=== PATIENT | male | born 1950 | race Caucasian/White ===

== ENCOUNTER 2016-10-10 09:13 | Emergency (ER) | payer MEDICARE ==
[2016-10-10 09:47] VITALS: TEMP 98.7; BMI 24.0
--- NOTE | 2016-10-10 10:44 | EDPRACDOC ---
- General Information Chief Complaint: Abdominal Pain Stated Complaint: RT FLANK PAIN Time Seen by Provider: 10/10/16 10:31 Mode Of Arrival: Car Home Medications: Home Medications Bicalutamide [Casodex] 50 mg PO QAM 10/10/16 Oxycodone HCl [Roxicodone] 5 mg PO Q4-6H PRN #30 tablet 10/10/16 Saw Marcellus Xtr/Zinc Picolin [Saw Marcellus Capsule] 1 each PO BID 10/10/16 Allergies/Adverse Reactions: Allergies Allergy/AdvReac Type Severity Reaction Status Date / Time No Known Allergies Allergy Verified 10/10/16 09:47 - History of Present Illness Onset: 1 month HPI: PT PRESENTS WITH A MONTH OF RIGHT LOWER CHEST WALL PAIN. BEGAN WHEN HE WAS LIFTING HIS MOTHER AND HAD SUDDEN ONSET OF PAIN. WORSE WITH DEEP INSPIRATION. PAIN IS LOCALIZED TO THE POSTERIOR ASPECT. NO ABDOMINAL PAIN. Pain Location: Reports: Flank (RIGHT) Pain Context: Reports: With Exertion (AFTER LIFTING HIS MOTHER A MONTH AGO.) Pain Severity: Moderate Pain Quality: Reports: Aching, Sharp Adult Abdominal History: Denies: Urolithiasis Associated Signs & Symptoms: Denies: Nausea, Vomiting, Diarrhea, Fever Oral Intake: Normal Urinary Output: Normal ED Past Medical History - History Reviewed Yes Nurses notes reviewed and agree except as marked - Patient Medical History Systemic History: Reports: Cancer (Prostate) - Social Medical History Lives In: Assisted Living EDM Review of Systems - Review of Systems ROS Negative Except as Marked: Yes All systems reviewed and were negative except as marked Constitutional: negative: Fever Respiratory: Shortness of Breath (DUE TO PAIN.) Cardiovascular: Chest Pain (RIGHT LOWER POSTERIOR CHEST WALL) Gastrointestinal: Pain (RUQ RADIATING FROM RIGHT FLANK. WORSE WITH DEEP INSPIRATION.). negative: Nausea, Vomiting - Physical Exam Constitutional: Alert Oriented to: Time, Person, Place Last recorded Vital Signs: Last Vital Signs Temp 98.7 F 10/10/16 09:42 Pulse 73 10/10/16 11:41 Resp 18 10/10/16 11:41 BP 162/92 10/10/16 11:41 Pulse Ox 97 10/10/16 11:41 Oxygen Pulse Oxygen Saturation 97 O2 Device Oxygen Flow Rate Fraction of Inspired Oxygen ( FIO2) - HEENT Head: negative: Deformity, Laceration Eye Exam: negative: Conjunctival Injection, Pale Conjunctiva Oropharynx: negative: Membranes Dry Nose: negative: Congestion, Discharge Neck: negative: Limited ROM - Respiratory/Cardiovascular Respiratory: Normal - CTA. negative: Tachypnea Cardiovascular: negative: Bradycardia, Tachycardia, Irregular - GI Auscultation: Normal Palpation: Normal Tenderness: RUQ (ONLY WITH DEEP BREATH) - Integumentary Skin: Warm, Dry. negative: Rash - Neurologic Memory Impaired: Normal Motor Function: Normal Mood Description: Anxious, Appropriate Thought: Coherent Perception: Normal - Re-evaluation Re-evaluation 1 Re-evaluation Time: 13:29 PT STATES HE HAS KNOWN METASTATIC DISEASE AND HAS A SPOT ON HIS 12TH RIB. LIKELY HIS PAIN IS FROM THIS. WILL PRESCRIBE PAIN MEDICATION FOR HOME. - Results 10/10/16 10:40 10/10/16 10:40 WBC 5.3 xk/uL (3.8-10.8) 10/10/16 10:40 RBC 4.24 xM/uL (4.70-6.10) L 10/10/16 10:40 Hgb 13.3 g/dL (14.0-18.0) L 10/10/16 10:40 Hct 38.7 % (42-52) L 10/10/16 10:40 MCV 91 fL (80-94) 10/10/16 10:40 MCH 31.3 pg (27-32) 10/10/16 10:40 MCHC 34.3 g/dl (33-36) 10/10/16 10:40 RDW 13.3 % (11.5-14.5) 10/10/16 10:40 Plt Count 165 xk/uL (130-400) 10/10/16 10:40 MPV 9.1 fL (7.4-10.4) 10/10/16 10:40 Neut % (Auto) Cancelled 10/10/16 10:40 Lymph % (Auto) Cancelled 10/10/16 10:40 [place] % (Auto) Cancelled 10/10/16 10:40 Eos % (Auto) Cancelled 10/10/16 10:40 Baso % (Auto) Cancelled 10/10/16 10:40 Absolute Neuts (auto) Cancelled 10/10/16 10:40 Absolute Lymphs (auto) Cancelled 10/10/16 10:40 Seg Neuts % (Manual) 64 % (45-76) 10/10/16 10:40 Band Neutrophils % 1 % (0-5) 10/10/16 10:40 Lymphocytes % (Manual) 22 % (17-44) 10/10/16 10:40 Monocytes % (Manual) 11 % (0-10) H 10/10/16 10:40 Eosinophils % (Manual) 2 % (0-5) 10/10/16 10:40 Absolute Neutrophils 3.45 xk/uL (1.7-8.2) 10/10/16 10:40 Absolute Lymphocytes 1.17 xk/uL (0.65-4.75) 10/10/16 10:40 Platelet Estimate Norm (NORMAL) 10/10/16 10:40 RBC Morphology Norm 10/10/16 10:40 PT 11.0 SEC (9.2-11.2) 10/10/16 10:40 INR 1.1 10/10/16 10:40 APTT 27.7 SEC (22-35) 10/10/16 10:40 Sodium 138 mEq/L (137-146) 10/10/16 10:40 Potassium 4.2 mEq/L (3.5-5.1) 10/10/16 10:40 Chloride 100 mEq/L (98-107) 10/10/16 10:40 Carbon Dioxide 28 mMOL/L (22-33) 10/10/16 10:40 Anion Gap 14 mEq/L (8-16) 10/10/16 10:40 BUN 10 MG/DL (9-20) 10/10/16 10:40 Creatinine 0.80 MG/DL (0.66-1.25) 10/10/16 10:40 Estimated GFR (MDRD) > 60 mL/min (>=60) 10/10/16 10:40 Glucose 92 mg/dL (70-99) 10/10/16 10:40 Calculated Osmolality 265 MOs/Kg (270-290) L 10/10/16 10:40 Calcium 9.2 MG/DL (8.4-10.2) 10/10/16 10:40 Total Bilirubin 0.8 MG/DL (0.2-1.3) 10/10/16 10:40 AST 64 IU/L (17-59) H 10/10/16 10:40 ALT 74 IU/L (21-72) H 10/10/16 10:40 Alkaline Phosphatase 99 IU/L (50-160) 10/10/16 10:40 Troponin I < 0.01 ng/mL (<.04) 10/10/16 10:40 Total Protein 7.5 G/DL (6.3-8.2) 10/10/16 10:40 Albumin 4.1 G/DL (3.5-5.0) 10/10/16 10:40 Lipase 40 U/L (23-300) 10/10/16 10:40 Lab Results 10/10/16 10/10/16 10/10/16 10:40 10:40 10:40 WBC 5.3 RBC 4.24 L Hgb 13.3 L Hct 38.7 L MCV 91 MCH 31.3 MCHC 34.3 RDW 13.3 Plt Count 165 MPV 9.1 Neut % (Auto) Cancelled Lymph % (Auto) Cancelled [place] % (Auto) Cancelled Eos % (Auto) Cancelled Baso % (Auto) Cancelled Absolute Neuts (auto) Cancelled Absolute Lymphs (auto) Cancelled Seg Neuts % (Manual) 64 Band Neutrophils % 1 Lymphocytes % (Manual) 22 Monocytes % (Manual) 11 H Eosinophils % (Manual) 2 Absolute Neutrophils 3.45 Absolute Lymphocytes 1.17 Platelet Estimate Norm RBC Morphology Norm PT 11.0 INR 1.1 APTT 27.7 Sodium 138 Potassium 4.2 Chloride 100 Carbon Dioxide 28 Anion Gap 14 BUN 10 Creatinine 0.80 Estimated GFR (MDRD) > 60 Glucose 92 Calculated Osmolality 265 L Calcium 9.2 Total Bilirubin 0.8 AST 64 H ALT 74 H Alkaline Phosphatase 99 Troponin I < 0.01 Total Protein 7.5 Albumin 4.1 Lipase 40 - EKG EKG #1 EKG Time: 10:43 -: Yes EKG interpreted by me Rate: bpm: 73 [place]: LAD Rhythm: NSR ST: Nonsp Decision Time to Discharge: 13:30 - Departure Yes I personally saw and evaluated the patient. 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 Back pain Qualifiers: Back pain location: thoracic back pain Chronicity: chronic Back pain laterality : right Qualified Code(s): M54.6 - Pain in thoracic spine; G89.29 - Other chronic pain Instructions: Back Pain (ED), Core Strengthening Exercises (GEN) Education/Counseling Given To: Patient Education/Counseling Given Regarding: Diagnosis, Treatment, Prognosis, Follow Up Referrals: None,No Provider [Primary Care Provider] - As Needed Prescriptions: New Oxycodone HCl [Roxicodone] 5 mg PO Q4-6H PRN #30 tablet PRN Reason: Breakthrough Pain Continue Bicalutamide [Casodex] 50 mg PO QAM Saw Marcellus Xtr/Zinc Picolin [Saw Marcellus Capsule] 1 each PO BID
[2016-10-10 10:48] LABS: MPV 9.1 fL (7.4-10.4)
[2016-10-10 10:59] LABS: BLOOD UREA NITROGEN 10 MG/DL (9-20); CALCIUM 9.2 MG/DL (8.4-10.2); CALCULATED OSMOLALITY 265 MOs/Kg (270-290); CHLORIDE 100 mEq/L (98-107); GLUCOSE 92 mg/dL (70-99); SODIUM LEVEL 138 mEq/L (137-146); TOTAL PROTEIN 7.5 G/DL (6.3-8.2)
[2016-10-10 11:03] LABS: PARTIAL THROMB. TIME 27.7 SEC (22-35); PT-INR 1.1
[2016-10-10 11:36] LABS: SEG NEUTROPHIL 64 % (45-76)
--- NOTE | 2016-10-10 11:43 | DIRPT ---
CLINICAL DATA: Right lower chest pain. Initial encounter. EXAM: CHEST 2 VIEW COMPARISON: None. FINDINGS: Hazy opacity is present in the right lung base. The left lung is clear. Heart size is normal. No pneumothorax or pleural effusion. IMPRESSION: Hazy right basilar airspace opacity could be due to atelectasis or infection. Electronically Signed By: Cezar Ortega M.D. On: 10/10/2016 11:40
--- NOTE | 2016-10-10 12:49 | DIRPT ---
CLINICAL DATA: Right flank pain. History of prostate carcinoma EXAM: CT ABDOMEN AND PELVIS WITHOUT CONTRAST TECHNIQUE: Multidetector CT imaging of the abdomen and pelvis was performed following the standard protocol without oral or intravenous contrast material administration. COMPARISON: July 17, 2016 FINDINGS: Lower chest: There is bibasilar lung scarring. There is mild posterior pleural thickening bilaterally. There is evidence of a degree of pectus excavatum. Hepatobiliary: No focal liver lesions are identified on this noncontrast enhanced study. Gallbladder wall does not appear appreciably thickened. There is no appreciable biliary duct dilatation. Pancreas: No pancreatic mass or inflammatory focus. Spleen: No splenic lesions are identified. Adrenals/Urinary Tract: Adrenals appear normal bilaterally. There is a 1 mm calculus in the mid right kidney. There is no mass or hydronephrosis on either side. There are no intrarenal calculi on the left. There is no ureteral calculus on either side. Urinary bladder is midline with wall thickness within normal limits. Stomach/Bowel: There is no appreciable bowel wall or mesenteric thickening. There is no apparent bowel obstruction. No free air or portal venous air. Vascular/Lymphatic: There is no demonstrable abdominal aortic aneurysm. There are scattered foci of calcification in the aorta. No vascular lesions are evident on this noncontrast enhanced study. There is no demonstrable adenopathy in the abdomen or pelvis. Reproductive: Prostate is smaller compared to recent prior study. The prostate and seminal vesicles currently appear normal in size and contour. No prostatic lesion is appreciable on this noncontrast enhanced study. No pelvic mass or pelvic fluid collection. Other: Appendix region appears normal. No abscess or ascites is evident in the abdomen or pelvis. 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 There is degenerative change throughout the lumbar spine, most notably at L5-S1, stable. Sclerotic lesions are noted in each inferior iliac bone, significantly more on the right than on the left, stable. There are sclerotic lesions in each posterior acetabular region. There has been an increase in the amount of sclerotic change in the posterior left acetabulum compared to recent prior study. A pathologic fracture in the right ischium is stable. There is sclerotic change in this area consistent with metastatic disease. IMPRESSION: Sclerotic bony metastases with a slight increase in sclerotic metastasis in the posterior left acetabulum compared to recent prior study. Other sclerotic lesions appear stable. Pathologic fracture of the right ischium is stable. Prostate is smaller compared to recent prior study, likely due to recent hormonal therapy. There is no demonstrable adenopathy on this noncontrast enhanced study. Seminal vesicles do not appear enlarged currently. 1 mm calculus mid right kidney. No ureteral calculi or hydronephrosis on either side. No bowel obstruction. No abscess. No periappendiceal region inflammation. Electronically Signed By: Ralf Rucker III, M.D. On: 10/10/2016 12:46
[2016-10-10 13:42] VITALS: BP 159/104; PULSE 68
== END 2016-10-10 13:52 | disposition home or self-care (01) ==
LOC: ED 09:13
DX: C61 Malignant neoplasm of prostate (principal); C79.51 Secondary malignant neoplasm of bone; M54.6 Pain in thoracic spine; G89.29 Other chronic pain
CPT/HCPCS: 36415; 71020; 74176; 80053; 83690; 84484; 85007; 85027; 85610; 85730; 93005; 99284